=== PATIENT | female | born 1935 | race Caucasian/White ===

== ENCOUNTER → 2017-04-02 | Outpatient (CLI) | payer OTHER, BC | LOC: FIMAGING 13:49 | PROVIDERS: ATTEND Internal Medicine Critical Care Medicine | DX: R91.1 Solitary pulmonary nodule (principal); R91.8 Other nonspecific abnormal finding of lung field; Z87.891 Personal history of nicotine dependence ==

== ENCOUNTER → 2017-08-20 | Outpatient (CLI) | payer OTHER, BC | LOC: FIMAGING 12:55 | PROVIDERS: ATTEND Internal Medicine | DX: R91.1 Solitary pulmonary nodule (principal); J43.9 Emphysema, unspecified; I25.10 Atherosclerotic heart disease of native coronary artery without angina pectoris ==

== ENCOUNTER 2017-08-26 09:54 | Emergency (ER) | payer OTHER, BC ==
--- NOTE | 2017-08-26 09:54 | EDPHY ---
H & P Time Seen by Provider: 08/26/17 09:54 HPI/ROS: CHIEF COMPLAINT: Nausea and vomiting HISTORY OF PRESENT ILLNESS: Started last night with multiple episodes of nausea and vomiting which continued today. Denies diarrhea or abdominal pain. Worse with oral intake. Symptoms severe. Received 12.5 mg IV Phenergan by ambulance prior to arrival. REVIEW OF SYSTEMS: Eye: no change in vision ENT: Feels thirsty Cardiac: no chest pain or syncope Pulmonary: no cough or SOB Abdomen: HPI Musculoskeletal: no back pain Skin: no rash Neuro: no headache Constitutional: no fever : no urinary symptoms, dysuria or hematuria A comprehensive 10 point review of systems is otherwise negative aside from elements mentioned in the history of present illness. PAST MEDICAL HISTORY: Includes COPD, pulmonary embolism on Xarelto. Hypothyroid Social history: Former smoker, occasional alcohol General Appearance: Alert and conversant, cooperative. Eyes: No scleral icterus. ENT, Mouth: Dry mucous membranes Respiratory: Normal respiratory effort, breath sounds equal, lungs are clear to auscultation. Cardiovascular: Regular rate and rhythm. Gastrointestinal: Abdomen is soft and non tender. Not distended, normal bowel sounds, no rebound or guarding. Neurological: Alert, face symmetric, normal motor and sensory in extremities. Skin: Warm and dry, no rashes. Musculoskeletal: No peripheral edema. Psychiatric: Not agitated. Emergency Department course/MDM: Patient is clinically dehydrated. IV normal saline 1 L. Labs to include CBC chemistry and liver function tests and lipase. 1256: Re-examined, taking oral ice chips, wants to be discharged, which I think is reasonable. Normal abdominal exam. Currently not symptomatic. Constitutional: Initial Vital Signs Temperature (C) 36.3 C 08/26/17 10:04 Heart Rate 94 08/26/17 10:04 Respiratory Rate 18 08/26/17 10:04 Blood Pressure 176/76 H 08/26/17 10:04 O2 Sat (%) 91 L 08/26/17 10:04 O2 Delivery Mode Nasal Cannula O2 (L/minute) 3 Allergies/Adverse Reactions: Sulfa (Sulfonamide Antibiotics) Allergy (Verified 11/18/15 08:18) "I GET WIERD" Home Medications: Medication Instructions Recorded Fluticasone/Salmeter 250/50Mcg 1 inh IH BID 05/12/11 [Advair 250/50 (*)] Levothyroxine Sodium [Synthroid] 137 mcg PO DAILY 05/12/11 Rosuvastatin Calcium [Crestor] 20 mg PO HS 05/12/11 Tiotropium [place] [Spiriva] 18 mcg IH DAILY 05/12/11 LORazepam [Ativan (*)] 1 mg PO HS 10/30/15 Albuterol Hfa Anes Only [Proair 1 puffs IH DAILY PRN 11/18/15 Hfa Icu (*)] Rivaroxaban [Xarelto 10mg (*)] 10 mg PO DAILY 03/25/16 Ondansetron Odt [Zofran Odt] 4 mg PO Q4PRN #6 tab 08/26/17 Medical Decision Making - Diagnostics EKG Interpretation: 12-lead EKG interpreted by me; official reading is in trace master. My interpretation is sinus rhythm rate 90 with low voltage, no acute ischemic changes Differential Diagnosis: Differential diagnosis considered for nausea and vomiting including but not limited to gastroenteritis, gastritis, appendicitis, and medication side effect. - Data Points Laboratory Results: Laboratory Results 08/26/17 10:11 08/26/17 10:11 08/26/17 08/26/17 10:11 10:11 WBC 4.45 10^3/uL 10^3/uL (3.80-9.50) RBC 4.77 10^6/uL 10^6/uL (4.18-5.33) Hgb 13.4 g/dL g/dL (12.6-16.3) Hct 40.1 % % (38.0-47.0) MCV 84.1 fL fL (81.5-99.8) MCH 28.1 pg pg (27.9-34.1) MCHC 33.4 g/dL g/dL (32.4-36.7) RDW 13.2 % % (11.5-15.2) Plt Count 104 10^3/uL L 10^3/uL (150-400) MPV 8.7 fL fL (8.7-11.7) Neut % (Auto) 80.4 % H % (39.3-74.2) Lymph % (Auto) 10.6 % L % (15.0-45.0) Angelina % (Auto) 7.9 % % (4.5-13.0) Eos % (Auto) 0.2 % L % (0.6-7.6) Baso % (Auto) 0.2 % L % (0.3-1.7) Nucleat RBC Rel Count 0.0 % % (0.0-0.2) Absolute Neuts (auto) 3.58 10^3/uL 10^3/uL (1.70-6.50) Absolute Lymphs (auto) 0.47 10^3/uL L 10^3/uL (1.00-3.00) Absolute Monos (auto) 0.35 10^3/uL 10^3/uL (0.30-0.80) Absolute Eos (auto) 0.01 10^3/uL L 10^3/uL (0.03-0.40) Absolute Basos (auto) 0.01 10^3/uL L 10^3/uL (0.02-0.10) Absolute Nucleated RBC 0.00 10^3/uL 10^3/uL (0-0.01) Immature Gran % 0.7 % % (0.0-1.1) Immature Gran # 0.03 10^3/uL 10^3/uL (0.00-0.10) Sodium 136 mEq/L mEq/L (135-145) Potassium 4.0 mEq/L mEq/L (3.5-5.2) Chloride 98 mEq/L mEq/L (97-110) Carbon Dioxide 24 mEq/l mEq/l (22-31) Anion Gap 14 mEq/L mEq/L (8-16) BUN 6 mg/dL L mg/dL (7-23) Creatinine 0.5 mg/dL L mg/dL (0.6-1.0) Estimated GFR > 60 Glucose 125 mg/dL H mg/dL (70-100) Calcium 8.7 mg/dL mg/dL (8.5-10.4) Total Bilirubin 1.4 mg/dL mg/dL (0.1-1.4) Conjugated Bilirubin 0.3 mg/dL mg/dL (0.0-0.5) Unconjugated Bilirubin 1.1 mg/dL mg/dL (0.0-1.1) AST 17 IU/L IU/L (14-46) ALT 42 IU/L IU/L (9-52) Alkaline Phosphatase 81 IU/L IU/L (38-126) Total Protein 6.5 g/dL g/dL (6.3-8.2) Albumin 4.0 g/dL g/dL (3.5-5.0) Lipase 60 IU/L IU/L (23-300) Medications Given: Discontinued Medications Sodium Chloride (Ns) 1,000 mls @ 0 mls/hr IV EDNOW ONE; Wide Open PRN Reason: Protocol Stop: 08/26/17 10:01 Last Admin: 08/26/17 10:09 Dose: 1,000 mls Sodium Chloride (Ns) 1,000 mls @ 0 mls/hr IV EDNOW ONE; Wide Open PRN Reason: Protocol Stop: 08/26/17 11:00 Last Admin: 08/26/17 11:15 Dose: 1,000 mls Ondansetron HCl (Zofran) 4 mg IVP EDNOW ONE Stop: 08/26/17 10:02 Last Admin: 08/26/17 10:10 Dose: 4 mg Departure - Departure Disposition: Home, Routine, Self-Care Clinical Impression: Nausea & vomiting Qualifiers: Vomiting type: unspecified Vomiting Intractability: non-intractable Qualified Code(s): R11.2 - Nausea with vomiting, unspecified Condition: Good Instructions: Acute Nausea and Vomiting (ED) Referrals: Gay Lucero MD [Medical Doctor] - As per Instructions Prescriptions: Ondansetron Odt [Zofran Odt] 4 mg PO Q4PRN #6 tab
[2017-08-26] MEDS ORDERED: NS 1,000 ML IV ONE ×2 (10:00→10:59)
[2017-08-26] MEDS ORDERED: ONDANSETRON 4 MG/2 ML VIAL IVP ONE (10:01)
[2017-08-26 10:06] VITALS: RESP 18
--- NOTE | 2017-08-26 10:18 | CPEKG ---
Heart Rate: 90 RR Interval: 667 P-R Interval: 156 QRSD Interval: 80 QT Interval: 360 QTC Interval: 441 P [place]: 61 QRS [place]: 61 T Wave [place]: 40 EKG Severity - BORDERLINE ECG - EKG Impression: SINUS RHYTHM EKG Impression: LOW VOLTAGE IN FRONTAL LEADS EKG Impression: BORDERLINE T ABNORMALITIES, ANTERIOR LEADS Electronically Signed By: Papi Catalan 26-Aug-2017 10:31:55
[2017-08-26 10:21] LABS: PLATELET COUNT 104 10^3/uL (150-400)
[2017-08-26 14:15] VITALS: BP 137/86; PULSE 109; TEMP 98.2; O2SAT 90
== END 2017-08-26 14:15 | disposition home or self-care (01) ==
LOC: EDUNIT#
DX: R11.2 Nausea with vomiting, unspecified (principal); J44.9 Chronic obstructive pulmonary disease, unspecified; E86.9 Volume depletion, unspecified; Z79.01 Long term (current) use of anticoagulants; Z87.891 Personal history of nicotine dependence
CPT/HCPCS: 93005; 96361; 96374; 99284; J2405

== ENCOUNTER 2017-08-26 21:07 | Inpatient (IN) | payer OTHER, BC ==
[2017-08-26] MEDS ORDERED: methylPREDNISolone SOD SUCC 125 MG/2 ML VIAL ONE (21:19)
[2017-08-26] MEDS ORDERED: IPRATROPIUM/ALBUTEROL 3 ML DEYVIAL ONE (21:19)
--- NOTE | 2017-08-26 21:19 | EDPHY ---
H & P Time Seen by Provider: 08/26/17 21:16 - Medical/Surgical History Hx Asthma: No Hx Chronic Respiratory Disease: Yes Hx Diabetes: No Hx Cardiac Disease: No Hx Renal Disease: No Hx Cirrhosis: No Hx Alcoholism: No Hx HIV/AIDS: No Hx Splenectomy or Spleen Trauma: No Other PMH: hx PE, Pulmonary nodules, COPD, hypothyroid, nose bleeds, hyperlipidemia, anxiety/depression, dysphonia, cataract surgery, vit D deficiency, HOME O2, - Social History Smoking Status: Former smoker Constitutional: Initial Vital Signs Temperature (C) 37 C 08/26/17 21:20 Heart Rate 110 H 08/26/17 21:20 Respiratory Rate 50 H 08/26/17 21:20 Blood Pressure 148/88 H 08/26/17 21:20 O2 Sat (%) 68 L 08/26/17 21:20 O2 Delivery Mode Room Air O2 (L/minute) 15 Allergies/Adverse Reactions: Sulfa (Sulfonamide Antibiotics) Allergy (Verified 08/26/17 21:23) "I GET WIERD" Home Medications: Medication Instructions Recorded Fluticasone/Salmeter 250/50Mcg 1 inh IH BID 05/12/11 [Advair 250/50 (*)] Levothyroxine Sodium [Synthroid] 137 mcg PO DAILY 05/12/11 Rosuvastatin Calcium [Crestor] 20 mg PO HS 05/12/11 Tiotropium [place] [Spiriva] 18 mcg IH DAILY 05/12/11 LORazepam [Ativan (*)] 1 mg PO HS 10/30/15 Albuterol Hfa Anes Only [Proair 1 puffs IH DAILY PRN 11/18/15 Hfa Icu (*)] Rivaroxaban [Xarelto 10mg (*)] 10 mg PO DAILY 03/25/16 Medical Decision Making - Diagnostics Imaging Results: Imaging Impressions Chest X-Ray 08/26/17 21:25 Impression: Progressive interstitial lung disease, greatest in the lower lung zones. If clinically indicated consider noncontrast high-resolution chest CT to better define the extent and character of the patient's interstitial lung disease. Imaging: I viewed and interpreted images myself ED Course/Re-evaluation: CHIEF COMPLAINT: Cough, dyspnea, weakness, vomiting HISTORY OF PRESENT ILLNESS: This is an anticoagulated 82 y/o female with history of COPD and PE returning to the ED for the second time today feeling poorly. Per friend at bedside, she has had a cough for a few days and this morning she woke with vomiting, weakness, and poor appetite. She was evaluated for the vomiting this morning and improved with antiemetics and IV hydration and discharged home once asymptomatic. Throughout the day she has continued to feel poor and is now short of breath. She normally requires 2lpm O2 at home and has had to increase this today. Upon arrival in the ED she is hypoxemic at 69%, tachypneic, and has difficulty speaking. Friend at bedside is primary source for history. REVIEW OF SYSTEMS: A 10 point review of systems was performed and is negative with the exception of the elements mentioned in the history of present illness. PHYSICAL EXAM: HR 118, BP, O2 Sat 69% on room air, RR. Temp noted General Appearance: Alert, well hydrated, appropriate, and non-toxic appearing. Head: Atraumatic without scalp tenderness or obvious injury Eyes: Pupils equal, round, reactive to light and accommodation, EOMI, no trauma , no injection. Nose: Atraumatic, no rhinorrhea, clear. Throat: There is no erythema or exudates, no lesions, normal tonsils, mucus membranes moist. Neck: Supple,non-tender, no lymphadenopathy. Respiratory: No retractions. End expiratory wheezing bilaterally with prolonged expiratory phase. Tachypneic. Cardiovascular: Regular rate and rhythm, no murmurs, rubs, or gallops. Good capillary refill all extremities. Gastrointestinal: Abdomen is soft, non-tender, non-distended, no masses, no rebound, no guarding, no peritoneal signs. Musculoskeletal: Normal active ROM of all extremities, atraumatic. Neurological: Alert, appropriate, and interactive. The patient has non-focal cranial nerves, motor, sensory, and cerebellar exam. Skin: No rashes, good turgor, no nodules on palpation. PAST MEDICAL HISTORY: PE - Xarelto, pulmonary nodules, COPD, hypothyroid, epistaxis, hyperlipidemia, anxiety/depression, dysphonia, vit D deficiency, HOME O2 on 2lpm PAST SURGICAL HISTORY: cataract surgery SOCIAL HISTORY: Friend/caregiver at bedside. Former smoker. Occasional alcohol use. DIAGNOSTICS/PROCEDURES/CRITICAL CARE TIME: Chest x-ray: new bilateral infiltrates DIFFERENTIAL DIAGNOSIS: The differential diagnosis for the patient's shortness of breath and hypoxemia included but was not limited to pneumonia, myocardial infarction, acute mountain sickness, high altitude pulmonary edema, congestive heart failure, and pulmonary embolus. MEDICAL DECISION MAKING: This is an 82 y/o female with COPD who presents with progressive dyspnea throughout the day. She was treated for nausea and vomiting in the ED earlier today and discharged home after those symptoms resolved. She is now hypoxemic at 69%, tachypneic, and has expiratory wheezing with prolonged expiratory phase. Immediately initiated supplemental O2 and duo neb upon arrival in the ED for respiratory distress. Her SpO2 improved to 96% within a few minutes of therapy. Presentation could indicate pneumonia, COPD vs CHF exacerbation. Less suspicion for PE as patient is on Xarelto daily. Plan for IV, labs, chest x-ray , and serial reassessments. Chest x-ray shows new bilateral infiltrates. 2gm IV Cefepime, 750mg IV Levaquin ordered. Plan for admission for pneumonia. Spoke with hospitalist service. Dr. Stuart accepts admission. - Data Points Medications Given: Levofloxacin/Dextrose (Levaquin 750 Mg (Premix)) 150 mls @ 100 mls/hr IV EDNOW ONE PRN Reason: Protocol Stop: 08/26/17 23:15 Last Admin: 08/26/17 22:15 Dose: 150 mls Discontinued Medications Albuterol/Ipratropium (Duoneb) 3 ml IH EDNOW ONE Stop: 08/26/17 21:25 Last Admin: 08/26/17 21:30 Dose: 3 ml Albuterol/Ipratropium (Duoneb) 3 ml IH EDNOW ONE Stop: 08/26/17 21:32 Last Admin: 08/26/17 21:32 Dose: 3 ml Cefepime HCl 2 gm/ Sterile (Water) 12.5 mls @ 150 mls/hr IV EDNOW ONE PRN Reason: Protocol Stop: 08/26/17 21:50 Last Admin: 08/26/17 22:05 Dose: 12.5 mls Methylprednisolone Sodium Succinate (Solu-Medrol) 125 mg IVP EDNOW ONE Stop: 08/26/17 21:25 Last Admin: 08/26/17 21:30 Dose: 125 mg Departure - Departure Disposition: [facility] Inpatient Acute Clinical Impression: Hypoxemia Pneumonia Qualifiers: Pneumonia type: due to unspecified organism Laterality: bilateral Lung location : unspecified part of lung Qualified Code(s): J18.9 - Pneumonia, unspecified organism Dyspnea Qualifiers: Dyspnea type: shortness of breath Qualified Code(s): R06.02 - Shortness of breath Condition: Fair Report Scribed for: Tej Jolly Report Scribed by: Yolie Arteaga Date of Report: 08/26/17 Time of Report: 21:36
[2017-08-26] MEDS ORDERED: methylPREDNISolone SOD SUCC 125 MG/2 ML VIAL IVP ONE (21:24)
[2017-08-26] MEDS: IPRATROPIUM/ALBUTEROL 3 ML DEYVIAL IH ONE (21:30)
[2017-08-26] MEDS ORDERED: IPRATROPIUM/ALBUTEROL 3 ML DEYVIAL IH ONE (21:31)
[2017-08-26 21:38] LABS: PLATELET COUNT 114 10^3/uL (150-400)
[2017-08-26] MEDS ORDERED: CEFEPIME HCL 2 GM in STERILE WATER INJ 12.5 ML IV ONE (21:46)
[2017-08-26 21:48] LABS: INR 1.05 (0.83-1.16); PROTIME(PATIENT) 13.9 SEC (12.0-15.0)
[2017-08-26] MEDS ORDERED: ONDANSETRON 4 MG/2 ML VIAL IVP PRN (23:59)
[2017-08-26] MEDS ORDERED: ALBUTEROL 3 ML DEYVIAL IH PRN (23:59)
[2017-08-26] MEDS ORDERED: ACETAMINOPHEN 325 MG TAB PO PRN (23:59)
[2017-08-27] MEDS: LORazepam 0.5 MG TAB PO PRN ×2 (00:17→20:22)
[2017-08-27] MEDS: NS 1,000 ML IV SCH (00:20)
--- NOTE | 2017-08-27 00:33 | PDGENHP ---
History and Physical - Chief Complaint Shortness of breath - History of Present Illness Source-patient is fair historian provides majority of the history. EMR was reviewed. Patient's rod cup filler/friend had left for the evening. Case was discussed with ED provider. 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 Patient has been having cough for the last several days and been evaluated by her PCP and was started on steroid burst. She presented earlier in the morning to the emergency department with complaints of some vomiting and generalized weakness as well as decreased appetite. Patient was evaluated and subsequently discharged however patient reports that her coughing and dyspnea as well as newly developed to nasal congestion and drainage prompted her to return to the emergency department. Patient reports that at home she had tried to use her home inhalers without any significant improvement in her dyspnea. She denies any recent sick contacts but has been in and out of hospital for outpatient procedures including a recent CT chest and to her PCPs office. This past week. Patient denies any subjective fevers. She has had some mild chills and sweats at home. She denies any diarrhea. No dysuria or hematuria patient denies any chest pain or palpitations. In the emergency department, patient was in moderate respiratory distress with of O2 sat in of 69% on her 2 L. Patient was also noted to be tachycardic. Patient required escalation of her oxygen to 5 liters/minute and subsequently to an OxyMask at 15 liters/minute with improvement in her for O2 sat to greater than 90%. She additionally she was given steroids and nebulizer treatment with some minor improvement in her symptoms. Patient continues to complain of improved but still persistent shortness of breath and cough and rhinorrhea. History Information - Allergies/Home Medication List Allergies/Adverse Reactions: Sulfa (Sulfonamide Antibiotics) Allergy (Verified 08/26/17 21:23) "I GET WIERD" Home Medications: Fluticasone/Salmeter 250/50Mcg [Advair 250/50 (*)] 1 inh IH BID 05/12/11 [Last Taken 03/24/16] Levothyroxine Sodium [Synthroid] 137 mcg PO DAILY 05/12/11 [Last Taken 03/24/16] Rosuvastatin Calcium [Crestor] 20 mg PO HS 05/12/11 [Last Taken 03/24/16] Tiotropium Mead [Spiriva] 18 mcg IH DAILY 05/12/11 [Last Taken 03/24/16] LORazepam [Ativan (*)] 1 mg PO HS 10/30/15 [Last Taken 03/24/16] Albuterol Hfa Anes Only [Proair Hfa Icu (*)] 1 puffs IH DAILY PRN 11/18/15 [ Last Taken 03/19/16] Rivaroxaban [Xarelto 10mg (*)] 10 mg PO DAILY 03/25/16 [Last Taken 03/24/16] I have personally reviewed and updated: family history, medical history, social history, surgical history - Past Medical History Additional medical history: COPD, chronic hypoxic respiratory failure on 2 liters/minute baseline oxygen continuous, epistaxis, history UTI, hypothyroidism , HLD, history of recurrent PEs on anticoagulation, pulmonary nodules, anxiety and depression, vitamin-D deficiency, dysphonia - Surgical History Additional surgical history: Cataract surgery bilaterally - Family History Additional family history: Father with history CAD otherwise no other medical issues in the family. Patient denies any family history of lung cancer or lung disease. - Social History Smoking Status: Former smoker (Patient quit 2017) Tobacco Use: Cigarettes Alcohol Use: Occasionally (Patient drinks occasional glass of wine. Denies any daily use.) Drug Use: None Additional social history: Patient lives alone. She has a rod cup filler. Cor status-DNR Review of Systems Review of Systems: ROS: 10pt was reviewed & negative except for what was stated in HPI & below Constitutional: Reports: chills, other (Mild sweats). Denies: diaphoresis, fever EENMT: Reports: nose congestion. Denies: blurred vision, sore throat Cardiac: Denies: chest pain, edema, lightheadedness, palpitations Respiratory: Reports: cough, shortness of breath, wheezing. Denies: orthopnea Gastrointestinal: Reports: vomitting (Earlier in the day resolved), nausea ( Earlier in a.m. Resolved). Denies: black stools, rectal bleeding, abdominal pain, diarrhea Genitourinary: Denies: dysuria, hematuria Muscolosketal: Reports: back pain, muscle pain Skin: Reports: rash (Bilateral arm and back. Patient evaluated by Dermatology outpatient) Neurological: Reports: anxiety, weakness (Generalized). Denies: depressed, numbness, tingling Hematologic/Lymphatic: Reports: no symptoms, easy bruising Physical Exam Physical Exam: Selected Entries 08/26/17 21:20 Blood Pressure Automatic Method Heart Rate 110 H Respiratory 50 H Rate O2 Sat (%) 68 L Temperature (C) 37 C Blood Pressure 148/88 H Mean Arterial 108 H Pressure (MAP) O2 Delivery Room Air Mode Temperature Oral Source Temp Pulse Resp BP Pulse Ox 36.8 C 96 20 117/69 98 08/26/17 23:17 08/26/17 23:17 08/26/17 23:17 08/26/17 23:17 08/26/17 23:17 O2 (L/minute) 10 Constitutional: not in pain, chronically ill appearing, obese, other (NAD. Patient is lying in bed. Patient does have some increased work of breathing with conversation but when resting in bed with mild increased work of breathing. Oxy mask is in place.) Eyes: PERRL, anicteric sclera, EOMI, No scleral injection Ears, Nose, Mouth, Throat: dry mucous membranes, other (Dysphonia), No poor dentition (Edentulous) Cardiovascular: pulses symmetric bilaterally, tachycardia, No systolic murmur ( Slightly distant heart sounds with increased work of breathing.), No edema Peripheral Pulses: 2+: dorsalis-pedis (R), dorsalis-pedis (L) Respiratory: reduced air movement (Diffusely decreased air movement), expiratory wheeze, No no respiratory distress, No no rales or rhonchi, No clear to auscultation, No inspiratory crackles, No respiratory distress (Increased work of breathing more so when patient is in conversation. She is able to say at least 5 word sentences) Gastrointestinal: normoactive bowel sounds, soft, non-tender abdomen, no palpable masses, other (Obese abdomen), No tenderness, No distension Genitourinary: no bladder tenderness, No yusuf in urethra Skin: warm, normal color, rash (Patient with several small circular scabbed lesions on her arm and back. No surrounding erythema or induration. Some excoriations present) Musculoskeletal: generalized weakness, No pain with ROM Neurologic: AAOx3, sensation intact bilaterally, weakness (Generalized), CN II- XII Intact, No facial droop Psychiatric: interacting appropriately, not encephalopathic, thought process linear, anxious, No depressed Lab Data & Imaging Review 08/26/17 21:30 08/26/17 21: WBC 5.50 10^3/uL (3.80-9.50) 08/26/17 21: RBC 4.44 10^6/uL (4.18-5.33) 08/26/17 21: Hgb 12.7 g/dL (12.6-16.3) 08/26/17: Hct 38.1 % (38.0-47.0) 08/26/17: MCV 85.8 fL (81.5-99.8) 08/26/17: MCH 28.6 pg (27.9-34.1) 08/26/17: MCHC 33.3 g/dL (32.4-36.7) 08/26/17: RDW 13.4 % (11.5-15.2) 08/26/17: Plt Count 114 10^3/uL (150-400) L 08/26/17: MPV 8.6 fL (8.7-11.7) L 08/26/17: Neut % (Auto) 73.3 % (39.3-74.2) 08/26/17: Lymph % (Auto) 15.5 % (15.0-45.0) 08/26/17: Potter % (Auto) 10.2 % (4.5-13.0) 08/26/17 21: Eos % (Auto) 0.2 % (0.6-7.6) L 08/26/17: Baso % (Auto) 0.4 % (0.3-1.7) 08/26/17: Nucleat RBC Rel Count 0.0 % (0.0-0.2) 08/26/17: Absolute Neuts (auto) 4.04 10^3/uL (1.70-6.50) 08/26/17 21: Absolute Lymphs (auto) 0.85 10^3/uL (1.00-3.00) L 08/26/17 21:30 Absolute Monos (auto) 0.56 10^3/uL (0.30-0.80) 08/26/17 21: Absolute Eos (auto) 0.01 10^3/uL (0.03-0.40) L 08/26/17 21:30 Absolute Basos (auto) 0.02 10^3/uL (0.02-0.10) 08/26/17: Absolute Nucleated RBC 0.00 10^3/uL (0-0.01) 08/26/17: Immature Gran % 0.4 % (0.0-1.1) 08/26/17: Immature Gran # 0.02 10^3/uL (0.00-0.10) 08/26/17: PT 13.9 SEC (12.0-15.0) 08/26/17: INR 1.05 (0.83-1.16) 08/26/17: APTT 28.2 SEC (23.0-38.0) 08/26/17 21:30 VBG Lactic Acid 1.2 mmol/L (0.7-2.1) 08/26/17: Sodium 132 mEq/L (135-145) L 08/26/17: Potassium 4.0 mEq/L (3.5-5.2) 08/26/17: Chloride 97 mEq/L (97-110) 08/26/17: Carbon Dioxide 23 mEq/l (22-31) 08/26/17: Anion Gap 12 mEq/L (8-16) 08/26/17 21:30 BUN 7 mg/dL (7-23) 08/26/17 21:30 Creatinine 0.6 mg/dL (0.6-1.0) 08/26/17 21:30 Estimated GFR > 60 08/26/17: Glucose 112 mg/dL (70-100) H 08/26/17: Calcium 8.5 mg/dL (8.5-10.4) 08/26/17: Total Bilirubin 1.4 mg/dL (0.1-1.4) 08/26/17 21:30 Procalcitonin 0.03 ng/mL (0.02-0.10) 08/26/17 21:30 Nasal Influenza A PCR NEGATIVE FOR FLU A (NEGATIVE) 08/26/17 21:30 Nasal Influenza B PCR NEGATIVE FOR FLU B (NEGATIVE) 08/26/17 21:30 Imaging Review: Portable Chest, 21:34 History: Dyspnea Comparison: 03/25/16, 09/15/12 Findings: There is progressive interstitial lung disease, new since 2012. There is no focal infiltrate or consolidation. Heart size and pulmonary vascularity are normal. There is no pleural effusion or pneumothorax. Vague nodularity in the left midlung is stable since 2010. There is no mass or adenopathy. There is chronic atherosclerotic calcification in the aortic arch. EKG leads and oxygen tubing overlie the chest. Impression: Progressive interstitial lung disease, greatest in the lower lung zones. If clinically indicated consider noncontrast high-resolution chest CT to better define the extent and character of the patient's interstitial lung disease. 08/20/17 CT Scan of the Chest (Without Contrast) Clinical Indications: Follow up pulmonary nodules in an 82-year-old female. Technique: Multidetector helical CT was performed from the superior thoracic inlet to the diaphragm. No intravenous contrast was given. The radiologist manipulated images at the computer workstation. Dose reduction techniques were utilized. Findings: No focal pulmonary consolidation is identified. No new or enlarging nodules are seen with several sub-5 mm nodules seen in the upper lungs bilaterally. Persistent changes of pronounced emphysema are noted. No pleural effusions are identified. No enlarged hilar or mediastinal lymph nodes are seen. The heart size is normal. Extensive coronary arterial calcifications are noted. The upper abdomen is negative for acute abnormality on this noncontrast study of the chest. Aortic calcifications are seen. Impression: 1. Stable appearance of probably benign pulmonary nodules. Continued follow up is suggested, with repeat noncontrast chest CT in 12-18 months. 2. Emphysema. 3. Prominent coronary arterial calcifications, which are incompletely evaluated on this non-gated study. 4. See above report for additional findings. Visualized and Interpreted Chest x-ray results: Yes Assessment & Plan Assessment: Acute on chronic hypoxic respiratory failure - patient continues to have increased oxygen needs from her baseline of 2 liters/minute by nasal cannula 215 a by OxyMask. Her sats are maintaining greater than 90%. She does not have any acute respiratory distress status post nebulizers, oxygen, antibiotics and steroids from the emergency department. She does continue to have increased work of breathing particularly with talking and is able to say 3-5 word sentences at this time. She does remain a little bit tachypneic but reports some improvement in her symptoms. Empiric antibiotic coverage as noted below Acute exacerbation COPD - continue steroids, nebulizer treatment and empiric antibiotic coverage with Levaquin. Patient did receive cefepime and Levaquin in the emergency department. She does not have fever or leukocytosis at this time. She has endorsed some nasal congestion and rhinorrhea as well as her cough which may point to a viral illness. Her influenza was negative will plan to obtain a respiratory PCR. Titrate oxygen as noted above. Interstitial lung findings on chest x-ray without any consolidations. Patient did have a recent CT scan of her chest on 08/20/2017 on will further discuss with Radiology as per day team. Noted was some pulmonary nodules without notation of interstitial lung findings. Patient is on an empiric antibiotic coverage at this time. Respiratory panel as noted above. Hyponatremia - likely secondary to some hypovolemia. Patient does appear clinically dehydrated. She will receive some gentle IV fluid hydration overnight. And advanced her diet as tolerated as she had some decreased appetite and nausea vomiting earlier in the day. Thrombocytopenia-patient is currently on anticoagulation with Xarelto. No evidence of active bleeding. Will plan to continue to monitor CBC. Chronic medical issues Hypothyroidism - continue replacement HLD - statin Pulmonary nodules - as noted on recent CT 08/20/2017. Anxiety and depression - patient is requesting some lorazepam this evening and is complaining of increased anxiety. Will titrate down on her dose slightly given her acute respiratory status to minimize respiratory depression. Patient does appear anxious. FEN - IV fluid supplementation until patient's appetite improves and is able to tolerate p.o.. Electrolyte monitoring and replacement as noted above. Diet as tolerated. PPX-SCDs. Resume patient's Xarelto. Cor status-is DNR DNI Disposition-patient has been admitted observation status at this time pending response to above noted treatments.
[2017-08-27] MEDS: IPRATROPIUM/ALBUTEROL 3 ML DEYVIAL IH SCH ×4 (04:56→21:18)
[2017-08-27 05:33] LABS: PLATELET COUNT 93 10^3/uL (150-400)
[2017-08-27] MEDS: methylPREDNISolone SOD SUCC 125 MG/2 ML VIAL IVP SCH (07:46)
[2017-08-27] MEDS: LEVOTHYROXINE 137 MCG TAB PO SCH (07:47)
[2017-08-27] MEDS ORDERED: RIVAROXABAN 10 MG TAB PO SCH (09:00)
[2017-08-27] MEDS ORDERED: FLUTICASONE/SALMETER 250/50MCG DISKUS IH SCH (09:00)
[2017-08-27] MEDS: TIOTROPIUM INHALER 18 MCG/DOSE 5 DOSE/MDI IH SCH ×2 (11:32→21:21)
--- NOTE | 2017-08-27 12:49 | HOSPPROG ---
Hospitalist Progress Note Assessment/Plan: # Acute on chronic hypoxic respiratory failure - 2/2 - COPD exacerbation triggered by viral resp infection Chest x-ray (personally reviewed and interpreted) no acute infiltrates Oxygen saturations 92% on 10 L - reports feeling better however not baseline - continue steroids - continue inhaled beta agonist # Acute exacerbation COPD - as above - continue levofloxacin for treatment of COPD exacerbation # acute human metapneumovirus- presumed trigger of her above COPD exacerbation- WBC dropped to 3.15 - continue supportive care # Hyponatremia - likely secondary to some hypovolemia. Patient does appear clinically dehydrated. - continue IVF until p.o. Is adequate - recheck BMP in a.m. # morbid obesity - BMI greater than 30- certainly complicating patient's acute respiratory presentation # Thrombocytopenia-patient is currently on anticoagulation with Xarelto. No evidence of active bleeding. Will plan to continue to monitor CBC. # Hypothyroidism - continue replacement # HLD - statin # Pulmonary nodules - as noted on recent CT 08/20/2017.- outpatient follow-up # Anxiety and depression - patient with anxiety related to dyspnea- p.r.n. Ativan appropriate # FEN - IV fluid supplementation until patient's appetite improves and is able to tolerate p.o.. # PPX-SCDs. Resume patient's Xarelto. # Cor status-is DNR DNI # Disposition-> 2MN as remains acutely ill requiring high-flow oxygen I have discussed the case with the RN-we will continue current care and cord ridging improved pulmonary mechanics in wean oxygen as able Subjective: Feeling much better than initial presentation Objective: Vital Signs Temp Pulse Resp BP Pulse Ox 36.5 C 91 18 138/78 H 92 08/27/17 11:54 08/27/17 11:54 08/27/17 11:54 08/27/17 11:54 08/27/17 11:54 Microbiology 08/26/17 21:30 Respiratory Panel (PCR) - Final Nasal, Sinus - Anaerobic Tube/Swab Human Metapneumovirus Detected Laboratory Results 08/27/17 05:10 08/27/17 05:10 08/26/17 08/27/17 08/28/17 05:59 05:59 05:59 Intake Total 200 Output Total 600 Balance -400 PT 13.9 SEC (12.0-15.0) 08/26/17 21:30 INR 1.05 (0.83-1.16) 08/26/17 21:30 - Physical Exam Constitutional: chronically ill appearing, obese Eyes: anicteric sclera Ears, Nose, Mouth, Throat: dry mucous membranes Cardiovascular: regular rate and rhythym Respiratory: expiratory wheeze Gastrointestinal: normoactive bowel sounds Genitourinary: no bladder fullness Skin: warm Musculoskeletal: No asymmetric calves Neurologic: AAOx3 Psychiatric: interacting appropriately Lymph, Heme, Immunologic: no cervical LAD ICD10 Worksheet Patient Problems: Problems Problem Status Onset Dyspnea Acute Hypoxemia Acute Pneumonia Acute Back pain Acute Hyponatremia Acute Nausea & vomiting Acute UTI (urinary tract infection) Acute
[2017-08-27] MEDS: FLUTICASONE/SALMETER 500/50MCG DISKUS IH SCH ×2 (13:30→22:18)
--- NOTE | 2017-08-27 15:20 | PDMN ---
Medical Necessity Medical necessity: change to IP; los>2mn for acute on chronic hypoxic resp failure r/t COPD exacerbation triggered by viral respiratory infection (human metapneumovirus) , and hyponatremia; requires continued IV steroids, IVF, supplemental O2 @ 10 L, and scheduled nebs; comorbid obesity, HLD, pulm nodules , anxiety, and depression; per order and progress note 08/27/17
--- NOTE | 2017-08-27 17:19 | ASMTCMCOM ---
CM Note CM Note Notes: Met with pt re; dc poc. Pt lives at the [facility], occasionally she has Evette Noonan, a friend/caregiver that helps her out. PT/OT pending, TIMOTEO w/f. DC Plan: TBD Date Signed: 08/27/2017 05:19 PM Electronically Signed By:Odalys Sinclair RN
[2017-08-27] MEDS: ROSUVASTATIN CALCIUM 20 MG TAB PO SCH (20:23)
[2017-08-28] MEDS: IPRATROPIUM/ALBUTEROL 3 ML DEYVIAL IH SCH ×4 (04:42→20:50)
[2017-08-28] MEDS: NS 1,000 ML IV SCH (05:40)
[2017-08-28] MEDS ORDERED: FLUCONAZOLE 150 MG TAB PO ONE (09:33)
[2017-08-28] MEDS ORDERED: LACTULOSE 20 GM/30 ML UDCUP PO PRN (09:34)
[2017-08-28] MEDS ORDERED: MAGNESIUM HYDROXIDE 30 ML UDCUP PO PRN (09:34)
[2017-08-28] MEDS ORDERED: BISACODYL 10 MG SUPP PR PRN (09:34)
[2017-08-28] MEDS: methylPREDNISolone SOD SUCC 125 MG/2 ML VIAL IVP SCH (09:45)
[2017-08-28] MEDS: RIVAROXABAN 10 MG TAB PO SCH (09:45)
[2017-08-28] MEDS: LEVOTHYROXINE 137 MCG TAB PO SCH (09:45)
[2017-08-28] MEDS: FLUTICASONE/SALMETER 500/50MCG DISKUS IH SCH ×2 (10:03→20:50)
[2017-08-28] MEDS: POLYETHYLENE GLYCOL 3350 17 GM PKT PO PRN (11:12)
--- NOTE | 2017-08-28 14:40 | HOSPPROG ---
Hospitalist Progress Note Assessment/Plan: # Acute on chronic hypoxic respiratory failure - 2/2 - COPD exacerbation triggered by viral resp infection Chest x-ray (personally reviewed and interpreted) no acute infiltrates Oxygen saturations 92% on 8 L - slight improvement overnight - remains wheezy - continue steroids - continue inhaled beta agonist # Acute exacerbation COPD - as above - continue levofloxacin for treatment of COPD exacerbation # acute human metapneumovirus- presumed trigger of her above COPD exacerbation- WBC dropped to 3.15 - continue supportive care # Hyponatremia - likely secondary to some hypovolemia. Sodium 132-> 137 this am - dc IVF - recheck BMP in a.m. # morbid obesity - BMI greater than 30- certainly complicating patient's acute respiratory presentation # Thrombocytopenia- patient is currently on anticoagulation with Xarelto. No evidence of active bleeding. platelets up to 134 this am - Will plan to continue to monitor CBC. # Hypothyroidism - continue replacement # HLD - statin # Pulmonary nodules - as noted on recent CT 08/20/2017.- outpatient follow-up # Anxiety and depression - patient with anxiety related to dyspnea- p.r.n. Ativan appropriate # FEN - IV fluid supplementation until patient's appetite improves and is able to tolerate p.o.. # PPX-SCDs. Resume patient's Xarelto. # Cor status-is DNR DNI # Disposition-> 2MN as remains acutely ill requiring high-flow oxygen I have discussed the case with the RN-we will work on constipation today with bowel regimen Objective: Vital Signs Temp Pulse Resp BP Pulse Ox 36.4 C 93 18 133/87 H 92 08/28/17 11:38 08/28/17 11:38 08/28/17 11:38 08/28/17 11:38 08/28/17 11:38 Laboratory Results 08/28/17 08:57 08/28/17 08:57 08/27/17 08/28/17 08/29/17 05:59 05:59 05:59 Intake Total 550 Output Total 650 500 Balance -100 -500 PT 13.9 SEC (12.0-15.0) 08/26/17 21:30 INR 1.05 (0.83-1.16) 08/26/17 21:30 - Physical Exam Constitutional: no apparent distress, obese Eyes: anicteric sclera Ears, Nose, Mouth, Throat: moist mucous membranes Cardiovascular: regular rate and rhythym Respiratory: no respiratory distress, expiratory wheeze Gastrointestinal: normoactive bowel sounds Genitourinary: no bladder fullness Skin: warm Musculoskeletal: No asymmetric calves Neurologic: AAOx3 Psychiatric: interacting appropriately Lymph, Heme, Immunologic: no cervical LAD ICD10 Worksheet Patient Problems: Problems Problem Status Onset Dyspnea Acute Hypoxemia Acute Pneumonia Acute Back pain Acute Hyponatremia Acute Nausea & vomiting Acute UTI (urinary tract infection) Acute
[2017-08-28] MEDS ORDERED: TEMAZEPAM 15 MG CAP PO PRN (14:43)
--- NOTE | 2017-08-28 14:54 | ASMTCMCOM ---
CM Note CM Note Notes: Reviewed chart, PT/OT have both cleared pt, however pt still w/high O2 needs and not medically ready for dc. CM will follow in case pt needs C RN, will see how she progresses. Date Signed: 08/28/2017 02:53 PM Electronically Signed By:Clara Fatima RN
[2017-08-28] MEDS ORDERED: BENZONATATE 100 MG CAP PO PRN (18:18)
[2017-08-28] MEDS ORDERED: guaiFENesin/CODEINE PHOS 10 ML UDCUP PO PRN (18:18)
[2017-08-28] MEDS: guaiFENesin 600 MG TAB.ER PO SCH (20:35)
[2017-08-28] MEDS: SENNOSIDES/DOCUSATE SODIUM TAB PO SCH (20:36)
[2017-08-28] MEDS: ROSUVASTATIN CALCIUM 20 MG TAB PO SCH (20:36)
[2017-08-28] MEDS: TIOTROPIUM INHALER 18 MCG/DOSE 5 DOSE/MDI IH SCH (21:01)
[2017-08-29] MEDS: IPRATROPIUM/ALBUTEROL 3 ML DEYVIAL IH SCH ×4 (06:27→21:05)
[2017-08-29] MEDS: guaiFENesin 600 MG TAB.ER PO SCH ×2 (08:07→21:31)
[2017-08-29] MEDS: SENNOSIDES/DOCUSATE SODIUM TAB PO SCH ×2 (08:07→21:40)
[2017-08-29] MEDS: LEVOTHYROXINE 137 MCG TAB PO SCH (08:07)
[2017-08-29] MEDS: predniSONE 20 MG TAB PO SCH (08:08)
[2017-08-29] MEDS: RIVAROXABAN 10 MG TAB PO SCH (08:08)
[2017-08-29] MEDS: POLYETHYLENE GLYCOL 3350 17 GM PKT PO PRN (08:09)
[2017-08-29] MEDS: FLUTICASONE/SALMETER 500/50MCG DISKUS IH SCH ×2 (10:32→21:05)
--- NOTE | 2017-08-29 12:49 | HOSPPROG ---
Hospitalist Progress Note Assessment/Plan: # Acute on chronic hypoxic respiratory failure - 2/2 - COPD exacerbation triggered by viral resp infection Chest x-ray (personally reviewed and interpreted) no acute infiltrates Oxygen saturations 89% on 5 L - slight improvement again overnight - remains wheezy/tight - continue steroids - continue inhaled beta agonist # Acute exacerbation COPD - as above - continue levofloxacin for treatment of COPD exacerbation # acute human metapneumovirus- presumed trigger of her above COPD exacerbation- WBC dropped to 3.15 - continue supportive care # Hyponatremia - likely secondary to some hypovolemia. Sodium 132-> 140 this am - dc IVF - recheck BMP in a.m. # morbid obesity - BMI greater than 30- certainly complicating patient's acute respiratory presentation # Thrombocytopenia- patient is currently on anticoagulation with Xarelto. No evidence of active bleeding. platelets up to 142 this am - Will plan to continue to monitor CBC. # Hypothyroidism - continue replacement # HLD - statin # Pulmonary nodules - as noted on recent CT 08/20/2017.- outpatient follow-up # Anxiety and depression - patient with anxiety related to dyspnea- p.r.n. Ativan appropriate # FEN - IV fluid supplementation until patient's appetite improves and is able to tolerate p.o.. # PPX-SCDs. Resume patient's Xarelto. # Cor status-is DNR DNI # Disposition-> 2MN as remains acutely ill requiring high-flow oxygen I have discussed the case with the RN-we will continue to work on constipation today with bowel regimen Subjective: still dyspneic Objective: Vital Signs Temp Pulse Resp BP Pulse Ox 36.4 C 98 18 145/106 H 92 08/29/17 11:46 08/29/17 11:46 08/29/17 11:46 08/29/17 11:46 08/29/17 11:46 Laboratory Results 08/29/17 05:05 08/28/17 08:57 08/28/17 08/29/17 08/30/17 05:59 05:59 05:59 Intake Total 550 550 500 Output Total 650 2400 600 Balance -100 -1850 -100 PT 13.9 SEC (12.0-15.0) 08/26/17 21:30 INR 1.05 (0.83-1.16) 08/26/17 21:30 - Physical Exam Constitutional: chronically ill appearing, obese Eyes: anicteric sclera Ears, Nose, Mouth, Throat: moist mucous membranes Cardiovascular: regular rate and rhythym Respiratory: no respiratory distress, reduced air movement, expiratory wheeze Gastrointestinal: normoactive bowel sounds Genitourinary: no bladder fullness Skin: warm Musculoskeletal: No asymmetric calves Neurologic: AAOx3 Psychiatric: interacting appropriately Lymph, Heme, Immunologic: no cervical LAD ICD10 Worksheet Patient Problems: Problems Problem Status Onset Dyspnea Acute Hypoxemia Acute Pneumonia Acute Back pain Acute Hyponatremia Acute Nausea & vomiting Acute UTI (urinary tract infection) Acute
[2017-08-29] MEDS: TIOTROPIUM INHALER 18 MCG/DOSE 5 DOSE/MDI IH SCH (21:06)
[2017-08-29] MEDS: ROSUVASTATIN CALCIUM 20 MG TAB PO SCH (21:31)
[2017-08-29] MEDS: LORazepam 0.5 MG TAB PO PRN (21:38)
[2017-08-30] MEDS: IPRATROPIUM/ALBUTEROL 3 ML DEYVIAL IH SCH ×2 (05:46→10:10)
[2017-08-30] MEDS: LEVOTHYROXINE 137 MCG TAB PO SCH (08:32)
[2017-08-30] MEDS: RIVAROXABAN 10 MG TAB PO SCH (08:32)
[2017-08-30] MEDS: predniSONE 20 MG TAB PO SCH (08:32)
[2017-08-30] MEDS: guaiFENesin 600 MG TAB.ER PO SCH (08:32)
[2017-08-30] MEDS: SENNOSIDES/DOCUSATE SODIUM TAB PO SCH (08:47)
[2017-08-30] MEDS: FLUTICASONE/SALMETER 500/50MCG DISKUS IH SCH (10:10)
[2017-08-30 10:32] VITALS: RESP 18
[2017-08-30 11:44] VITALS: BP 132/83; PULSE 95; TEMP 97.5; O2SAT 88
--- NOTE | 2017-08-30 17:40 | GDS ---
[f rep st] DISCHARGE SUMMARY DISCHARGE DIAGNOSES: 1. Acute chronic obstructive pulmonary disease exacerbation. 2. Acute hypoxic respiratory failure. 3. Acute human metapneumovirus infection. 4. Hypovolemic hyponatremia. 5. Acute thrombocytopenia suspect secondary to viral infection. 6. Hypothyroidism. 7. Hyperlipidemia. 8. Anxiety/depression. HISTORY OF PRESENT ILLNESS: This is an 82-year-old female, with longstanding oxygen-dependent COPD, who presented with shortness of breath. For details of patient's initial presentation, please see the History and Physical dated 08/26/2017. CONSULTATIVE SERVICES: None. PROCEDURES: On 08/26/2017, patient had a PA and lateral chest x-ray that showed no acute infiltrates . HOSPITAL COURSE BY ISSUE: 1. Acute hypoxic respiratory failure secondary to human metapneumovirus infection and COPD exacerbat ion. Patient was treated aggressively with steroids, inhaled beta agonists and antibiotics for COPD e xacerbation. She did have improvement in her respiratory status on the day of disposition, saturating into mid 90s on 5 L of O2. She will be discharged with a prednisone taper, complete a 7-day course o f azithromycin, and normal home use of her inhaled medications. 2. Human metapneumovirus. The patient was provided supportive care. 3. COPD exacerbation as outlined above. Patient was provided with steroids, inhaled beta agonist and will follow as an outpatient, after a prednisone taper, with Dr. Boyle, her outpatient rod [facility]anger . MEDICATIONS AT THE TIME OF DISPOSITION: Please reference the med rec printed 08/30/2017. APPOINTMENTS: 1. Include with her PCP in the next 1-[address] Boyle in the next 3-4 weeks post disposition. PENDING STUDIES: At the time of this dictation include blood cultures drawn 08/26/2017 which are pre liminary no growth to date. I spent greater than 30 minutes in the planning and coordination of this discharge. /[id number]/MODL
== END 2017-08-30 15:07 | disposition home or self-care (01) | DRG 189 ==
LOC: F3E 23:08 → OBSVTOIN 08-27 14:51
PROVIDERS: ADMIT Family Medicine; ATTEND Family Medicine
DX: J96.21 Acute and chronic respiratory failure with hypoxia (principal); J44.1 Chronic obstructive pulmonary disease with (acute) exacerbation; B97.81 Human metapneumovirus as the cause of diseases classified elsewhere; R49.0 Dysphonia; E87.1 Hypo-osmolality and hyponatremia; E03.9 Hypothyroidism, unspecified; E55.9 Vitamin D deficiency, unspecified; D69.6 Thrombocytopenia, unspecified; R91.1 Solitary pulmonary nodule; E78.5 Hyperlipidemia, unspecified; Z99.81 Dependence on supplemental oxygen; Z87.891 Personal history of nicotine dependence; Z79.01 Long term (current) use of anticoagulants
CPT/HCPCS: 96365; 96366; 96374; 97161-GP; 97165-GO; G8978-GP-CI; G8979-GP-CI; G8980-GP-CI; G8987-GO-CI; G8988-GO-CI; G8989-GO-CI; J0692; J1956; J2405; J2930; J7512; J7613

== ENCOUNTER → 2018-09-09 | Outpatient (CLI) | payer OTHER, BC ==
[~2018-09-09] MED LIST: IOPAMIDOL (ISOVUE 370) 100 ML BTL IV ONE
== END ==
LOC: FIMAGING 15:49
PROVIDERS: ATTEND Internal Medicine
DX: M54.9 Dorsalgia, unspecified (principal); J44.9 Chronic obstructive pulmonary disease, unspecified; R91.8 Other nonspecific abnormal finding of lung field; M51.24 Other intervertebral disc displacement, thoracic region
CPT/HCPCS: 71275; Q9967; 82565-PO